=== PATIENT | female | born 1950 | race Caucasian/White ===

== ENCOUNTER → 2021-03-14 | Outpatient (CLI) | payer MEDICARE ==
[~2021-03-14] MED LIST: ESTRTP; KETO15TC; SERT50
== END | disposition home or self-care (01) ==
LOC: LAB SHORT 09:18
DX: D48.5 Neoplasm of uncertain behavior of skin (principal)
CPT/HCPCS: 88305

== ENCOUNTER → 2021-12-25 | Outpatient (CLI) | payer MEDICARE | END | disposition home or self-care (01) | LOC: LAB SHORT 15:06 → PLD 15:06 | DX: L57.0 Actinic keratosis (principal) | CPT/HCPCS: 88305 ==

== ENCOUNTER → 2022-08-19 | Outpatient (CLI) | payer MEDICARE | LOC: LAB 17:10 → LAB SHORT 17:10 | DX: R10.9 Unspecified abdominal pain (principal) | CPT/HCPCS: 87338 ==